=== PATIENT | male | born 1990 | race Caucasian/White ===

== ENCOUNTER 2017-12-27 23:16 | Emergency (ER) | payer OTHER ==
[~2017-12-27] VITALS: Ht 175.3 cm; Wt 80.0 kg
[~2017-12-27 23:16] MED LIST: ASCA500 PO; ASPI-390 PO; GINKGO PO; OMEGCAP2
[2017-12-27 23:18] VITALS: TEMP 36.8; Ht 175.3 cm; Wt 80.0 kg
[2017-12-27] MEDS ORDERED: SODIUM CHLORIDE 0.9% 1000ML 1,000 ML IV STA (23:33)
[2017-12-27] MEDS ORDERED: ONDANSETRON INJ 2 MG/ML 2 ML VIAL IV STA (23:33)
[2017-12-27] MEDS ORDERED: DULO60CA44 PO (23:40)
[2017-12-28 00:14] LABS: MEAN CELL VOLUME 82.4 fL (80-100); MEAN CORPUSCULAR HEMOGLOBIN 30.7 pg (25-34); MEAN CORPUSCULAR HGB CONC 37.2 g/dl (32-36); MEAN PLATELET VOLUME 8.6 fL (7.4-10.4); PLATELET COUNT 239 K/uL (130-400); RED CELL DISTRIBUTION WIDTH CV 11.9 % (11.5-14.5); RED CELL DISTRIBUTION WIDTH SD 35.8 fL (36.4-46.3)
[2017-12-28 00:39] LABS: CALCIUM 9.5 mg/dl (8.5-10.1); CREATININE 1.17 mg/dl (0.60-1.40); POTASSIUM 3.2 mmol/L (3.5-5.1); TOTAL PROTEIN 8.4 gm/dl (6.4-8.2)
[2017-12-28 00:53] LABS: BASO % 0.4 %; BASO ABS # 0.04 K/uL (0-0.2); EOS % 0.5 %; EOS ABS # 0.05 K/uL (0-0.5); IG# 0.04 K/uL (0.00-0.02); LYMPH % 22.7 %; LYMPH ABS # 2.52 K/uL (1.2-3.4); MONO % 4.4 %; MONO ABS # 0.49 K/uL (0.11-0.59); NEUT % 71.6 %; NEUT ABS # 7.96 K/uL (1.4-6.5)
--- NOTE | 2017-12-28 05:06 | EMERGENCY ROOM VISIT NOTE ---
History First contact with patient: 23:22 Chief Complaint: VOMITING Stated Complaint: ALCOHOL CONSUMPTION,DEHYDRATION,VOMITING Nursing Triage Summary: patient partner reports patient drinking 2 bottles of wine,vomiting,having a panic attack due to ptsd History of Present Illness The patient is a 27 year old male who presents to the Emergency Room accompanied by his partner due to alcohol consumption and vomiting. History is somewhat limited due to patient's intoxicated state and lack of cooperation. History is obtained from the patient's partner, who states that they had an argument earlier today and ended the relationship. He reports that the patient drank over 1 bottle of wine and became nauseous afterward and began vomiting. He has been vomiting since then and has been hyperventilating. He reports that his lips are numb and tingling in his hands are cramping. His partner reports a history of PTSD but no other mental health issues. Review of Systems Review of systems limited secondary to patient's intoxicated state. Past Medical/Surgical History Medical Problems: (1) Exercise-induced asthma Family History Cancer Kidney disease Social History Smoking Status: Never Smoker Marital Status: single Housing Status: lives with significant other Occupation Status: employed Current/Historical Medications Scheduled Ascorbic Acid (Vitamin C), 500 MG PO DAILY Duloxetine Hcl (Cymbalta), 60 MG PO DAILY [place]-3 Fatty Acids (Fish Oil), 1 CAP BID [Gingo Biloba], 1 TAB PO AMPM Scheduled PRN Rqsrtvo-Lpsjmtnctfvjg-Vuqptwkc (Excedrin Migraine), 1 TAB PO DAILY PRN for Migraine Physical Exam Vital Signs Date Time Temp Pulse Resp B/P (MAP) Pulse Ox O2 Delivery O2 Flow Rate FiO2 12/28/17 06:11 80 18 104/55 98 12/27/17 23:18 36.8 90 20 100/59 97 Room Air Physical Exam VITALS: Vitals are noted on the nurse's note and reviewed by myself. Vital signs stable. GENERAL: This is a 27-year-old male, anxious appearing, hyperventilating, sitting up in bed. Patient smells of ETOH. SKIN: The skin was without rashes, erythema, edema, or bruising. HEAD: Normocephalic atraumatic. EARS: External auditory canals clear, tympanic membranes pearly blake without erythema or effusion bilaterally. EYES: Pupils equal round and reactive to light and accommodation. Extraocular movements intact. MOUTH: Mucous membranes moist. NECK: Supple without nuchal rigidity. No lymphadenopathy. HEART: Regular rate and rhythm without murmurs gallops or rubs. LUNGS: Clear to auscultation bilaterally without wheezes, rales or rhonchi. ABDOMEN: Positive bowel sounds x 4. Soft, no tenderness. NEURO: Patient was alert and oriented but appears intoxicated. Medical Decision & Procedures Laboratory Results 12/27/17 23:52 Red Blood Count 5.22, Mean Corpuscular Volume 82.4, Mean Corpuscular Hemoglobin 30.7, Mean Corpuscular Hemoglobin Concent 37.2, Mean Platelet Volume 8.6, Neutrophils (%) (Auto) 71.6, Lymphocytes (%) (Auto) 22.7, Monocytes (%) (Auto) 4.4, Eosinophils (%) (Auto) 0.5, Basophils (%) (Auto) 0.4, Neutrophils # (Auto) 7.96, Lymphocytes # (Auto) 2.52, Monocytes # (Auto) 0.49, Eosinophils # (Auto) 0.05, Basophils # (Auto) 0.04 12/27/17 23:52 Test 12/27/17 23:52 White Blood Count 11.10 K/uL (4.8-10.8) Red Blood Count 5.22 M/uL (4.7-6.1) Hemoglobin 16.0 g/dL (14.0-18.0) Hematocrit 43.0 % (42-52) Mean Corpuscular Volume 82.4 fL (80-100) Mean Corpuscular Hemoglobin 30.7 pg (25-34) Mean Corpuscular Hemoglobin Concent 37.2 g/dl (32-36) Platelet Count 239 K/uL (130-400) Mean Platelet Volume 8.6 fL (7.4-10.4) Neutrophils (%) (Auto) 71.6 % Lymphocytes (%) (Auto) 22.7 % Monocytes (%) (Auto) 4.4 % Eosinophils (%) (Auto) 0.5 % Basophils (%) (Auto) 0.4 % Neutrophils # (Auto) 7.96 K/uL (1.4-6.5) Lymphocytes # (Auto) 2.52 K/uL (1.2-3.4) Monocytes # (Auto) 0.49 K/uL (0.11-0.59) Eosinophils # (Auto) 0.05 K/uL (0-0.5) Basophils # (Auto) 0.04 K/uL (0-0.2) RDW Standard Deviation 35.8 fL (36.4-46.3) RDW Coefficient of Variation 11.9 % (11.5-14.5) Immature Granulocyte % (Auto) 0.4 % Immature Granulocyte # (Auto) 0.04 K/uL (0.00-0.02) Anion Gap 13.0 mmol/L (3-11) Est Creatinine Clear Calc Drug Dose 94.0 ml/min Estimated GFR () 97.8 Estimated GFR (Non- 84.3 BUN/Creatinine Ratio 10.0 (10-20) Calcium Level 9.5 mg/dl (8.5-10.1) Total Bilirubin 0.7 mg/dl (0.2-1) Aspartate Amino Transf (AST/SGOT) 33 U/L (15-37) Alanine Aminotransferase (ALT/SGPT) 36 U/L (12-78) Alkaline Phosphatase 84 U/L (45-117) Total Protein 8.4 gm/dl (6.4-8.2) Albumin 5.0 gm/dl (3.4-5.0) Globulin 3.4 gm/dl (2.5-4.0) Albumin/Globulin Ratio 1.5 (0.9-2) Thyroid Stimulating Hormone (TSH) 0.930 uIu/ml (0.300-4.500) Ethyl Alcohol mg/dL 178.1 mg/dl (0-3) Medications Administered Medications (Trade) Dose Ordered Sig/Yessica Route Start Time Stop Time Status Last Admin Dose Admin Sodium Chloride 1,000 ml @ 999 mls/hr Q1H1M STAT IV 12/27/17 23:33 12/28/17 00:33 DC 12/27/17 23:42 999 MLS/HR Ondansetron HCl (Zofran Inj) 4 mg NOW STAT IV 12/27/17 23:33 12/27/17 23:35 DC 12/27/17 23:42 4 MG Medical Decision Differential diagnosis includes alcohol intoxication, drug use, anxiety, electrolyte abnormality, among others. The patient was evaluated as above. He presents due to alcohol intoxication and vomiting. On exam, the patient is extremely anxious and hyperventilating. He was given IV fluids and Zofran. The patient was able to fall asleep and slept for several hours. He was then evaluated by myself and was feeling significantly better. I did discuss the events of last night with the patient and his partner. The patient has a history of PTSD and admits that he sometimes turns to alcohol when he is upset. The patient states he was not trying to do any harm to himself by drinking this much. I did have the [address] [place] [address] liaison speak with the patient and they agreed that he was stable for discharge home. The patient has a good support system and a therapist to follow-up with. He was advised not to drink anymore alcohol today. He verbalized understanding of my assessment and treatment plan was discharged home in good condition. Medication Reconcilliation Current Medication List: was personally reviewed by me Blood Pressure Screening Patient's blood pressure: Normal blood pressure Impression Primary Impression: Alcohol intoxication Departure Information Dispostion Home / Self-Care Condition GOOD Referrals No Doctor, Assigned (PCP) Patient Instructions My [facility] Additional Instructions Rest and drink plenty of fluids today. Follow-up with your therapist as an outpatient. Return to the emergency department with any worsening or new/concerning symptoms. Problem Qualifiers Primary Impression: Alcohol intoxication Complication of substance-induced condition: uncomplicated Qualified Codes: F10.920 - Alcohol use, unspecified with intoxication, uncomplicated
[2017-12-28 06:11] VITALS: BP 104/55; PULSE 80; O2SAT 98
== END 2017-12-28 06:12 | disposition home or self-care (01) ==
LOC: C.EDB 23:17
DX: F10.920 Alcohol use, unspecified with intoxication, uncomplicated (principal); Z79.899 Other long term (current) drug therapy; J45.909 Unspecified asthma, uncomplicated